=== PATIENT | male | born 1955 | race Caucasian/White ===

== ENCOUNTER → 2017-03-26 | Outpatient (CLI) | payer OTHER ==
[~2017-03-26] MED LIST: AMLODIPINE BESYL5 MG PO; AUGMENTIN PO; FLUOXETINE HCL20 M1 PO; KEFLEX PO; LIPITOR40 MG DOB; LORTAB 7.5-5001 TAB PO; LOTENSIN20 MG PO; LOTREL 5/20 MG1 CAP PO; NAPROSYN500 MG PO; OMEPRAZOLE20 M1 PO; PREVACID PO
--- NOTE | ~2017-03-26 | CT57 ---
[facility] A Service of [facility] / [facility] RADIOLOGY TEXT RESULTS PATIENT: DIMITRIOS SANCHEZ LOCATION: [facility] : 53 UNIT #: [id number] AGE: [address]: ED MISHRA MD SEX: M ORDER DR: [id number] [address] [address] [id number] O MR#: [id number] [facility] #: [id number] NAME: DIMITRIOS SANCHEZ : 1955 SEX: M STUDY DATE/TIME: 03/26/2017 7:59 UNIT: [facility] ROOM: STUDY DESCRIPTION: CT Chest Wo Cont Attending Physician: Ed Mishra M.D. Referring Physician: Ed Mishra M.D. Ordering Physician: Ed Mishra M.D. Primary Care Physician: Ed Mishra M.D. MEDICAL IMAGING REPORT This report is preliminary unless electronic signature is present. EXAM CT scan of the chest without contrast. INDICATIONS Follow-up thoracic aortic aneurysm. TECHNIQUE CT scan of the chest was performed without contrast. Coronal and sagittal reformatted images were obtained. This CT exam was performed with one or more of the following radiation dose reduction techniques: automatic exposure control, adjustment of mA and/or kV according to patient size, and iterative reconstruction. COMPARISON Comparison with 12/22/2014. FINDINGS There is some mild bibasilar dependent atelectasis/scarring. There is no airspace consolidation or suspicious pulmonary nodule. Stable ascending aorta measuring 3.5 cm. This is nonaneurysmal. The descending thoracic aorta is within normal limits. Coronary artery calcifications. No lymphadenopathy or pleural effusion. Limited imaging of the upper abdomen shows aneurysmal dilatation of the infrarenal abdominal aorta measuring about 3.4 cm in greatest dimension. This is better evaluated on an ultrasound. IMPRESSION 1. Stable ascending aorta measuring 3.5 cm. 2. Partially imaged infrarenal abdominal aortic aneurysm. Please refer to separately dictated ultrasound of the aorta for complete details. [facility] A Service of [facility] / [facility] RADIOLOGY TEXT RESULTS PATIENT: DIMITRIOS SANCHEZ LOCATION: [facility] : 53 UNIT #: [id number] AGE: [address]: ED MISHRA MD SEX: M ORDER DR: Dictated by... Ismael Izquierdo M.D. THIS IS AN ELECTRONICALLY VERIFIED REPORT Ismael Izquierdo M.D. at 03/26/2017 7:22 PM LAURA/mir TD: 03/26/2017 19:09 JOB #: [id number] MEDICAL IMAGING REPORT Page 1 of 1
--- NOTE | ~2017-03-26 | US11 ---
[facility] A Service of [facility] RADIOLOGY TEXT RESULTS PATIENT: DIMITRIOS SANCHEZ LOCATION: [facility] : 53 UNIT #: [id number] AGE: [address]: ED MISHRA MD SEX: M ORDER DR: [id number] [address] [address] [id number] O MR#: [id number] Acc #: [id number] NAME: DIMITRIOS SANCHEZ : 1955 SEX: M STUDY DATE/TIME: 03/26/2017 8:07 UNIT: [facility] ROOM: STUDY DESCRIPTION: US Aorta Duplex Complete Attending Physician: Ed Mishra M.D. Referring Physician: Ed Mishra M.D. Ordering Physician: Ed Mishra M.D. Primary Care Physician: Ed Mishra M.D. MEDICAL IMAGING REPORT This report is preliminary unless electronic signature is present. DATE OF EXAMINATION 03/26/2017 EXAMINATION Triple A duplex. CLINICAL HISTORY Known abdominal aortic aneurysm. FINDINGS The proximal aorta has a size measurement of 2.8 x 2.2 cm, with a velocity of 65 cm/sec. The mid-aorta measures 4.1 x 4.3 cm. The right common iliac artery has a velocity of 32 cm/sec. The left common iliac artery has a velocity of 108 cm/sec. Distal aorta is obscured by bowel gas. IMPRESSION 1. Infrarenal abdominal aortic aneurysm measuring 4.7 x 4.2 cm at its mid-portion. This represents an increase in size from the previous 11/2014 study. At that time, its greatest diameter was 3.5 x 4.3 cm at its distal aorta. The distal aorta was not able to be evaluated on today's exam. Dictated by... Kofif Lackey M.D. THIS IS AN ELECTRONICALLY VERIFIED REPORT Koffi Lackey M.D. at 04/06/2017 1:48 PM DAVID/mir TD: 03/26/2017 23:04 JOB #: [id number] [facility] A Service of [facility] RADIOLOGY TEXT RESULTS PATIENT: DIMITRIOS SANCHEZ LOCATION: [facility] #: [id number] : 53 UNIT #: [id number] AGE: [address]: ED MISHRA MD SEX: M ORDER DR: MEDICAL IMAGING REPORT Page 1 of 1
== END | disposition home or self-care (01) ==
LOC: SGUS 08:00
DX: I71.2 Thoracic aortic aneurysm, without rupture (principal); I71.4 Abdominal aortic aneurysm, without rupture
CPT/HCPCS: 71250; 93978